=== PATIENT | female | born 1945 | race Caucasian/White ===

== ENCOUNTER 2018-06-02 10:41 | Inpatient (IN) ==
[2018-06-02] MEDS ORDERED: HYDROmorphone 2 MG/1 ML VIAL IV STA (11:27)
[2018-06-02] MEDS ORDERED: ONDANSETRON 4 MG/2 ML VIAL IV STA (11:27)
[2018-06-02] MEDS ORDERED: MAGNESIUM HYDROXIDE SUSP 30 ML UDCUP PO PRN ×2 (12:16→12:47)
[2018-06-02] MEDS ORDERED: ALUMINUM/MAGNES/SIMETH MAX STR 30 ML UDCUP PO PRN (12:16)
[2018-06-02] MEDS ORDERED: ceFAZolin 2,000 MG in PREMIX 1 EACH IV ONE (12:16)
[2018-06-02] MEDS ORDERED: ACETAMINOPHEN 325 MG TABLET PO PRN (12:16)
[2018-06-02] MEDS ORDERED: MORPHINE 4 MG/1 ML VIAL IV PRN ×2 (12:16)
[2018-06-02] MEDS ORDERED: oxyCODONE/ACETAMINOPHEN 5-325 MG TABLET PO PRN ×2 (12:16)
[2018-06-02] MEDS ORDERED: ONDANSETRON 4 MG/2 ML VIAL IV PRN ×2 (12:16→12:47)
[2018-06-02 12:22] LABS: Basophils % 0.5 % (0.0-0.8); Eosinophils # 0.1 10*3/uL (0.0-0.87); Eosinophils % 1.9 % (0.00-10.9); Hematocrit 35.6 VOL% (35.7-47.0); Hemoglobin 11.8 GM/DL (12.0-16.0); Immature Granulocytes % 0.4 %; Immature Granulocytes Absolute 0.03 #; Lymphocytes # 1.3 10*3/uL (1.4-4.0); Lymphocytes % 18.2 % (21.3-54.2); Mean Corpuscular HGB Conc 33.1 GM/DL (32-36); Mean Corpuscular Hemoglobin 31 PG (27-34); Mean Platelet Volume 9.7 FL (9.6-12.0); Monocytes # 0.4 10*3/uL (0.11-0.8); Monocytes % 5.4 % (1.7-12.7); Neutrophils # 5.4 10*3/uL (1.4-7.4); Neutrophils % 73.6 % (38.7-73.9); Platelet Count 229 T/CUMM (130-400); Red Blood Count 3.83 MC/CUMM (3.8-5.5); Red Cell Distribution Width 12.2 % (9.3-17.3); White Blood Count 7.4 T/CUMM (4-12)
[2018-06-02 12:35] LABS: PT Patient Result 10.8 SECS; Partial Thromboplastin Time 24.7 SECS (0-40)
[2018-06-02 12:45] LABS: Albumin 3.4 G/DL (3.4-5.0); Bilirubin,Total 0.5 MG/DL (0.2-1.0); Osmolality,Calculated 282.4 MOS/KG (273-304); Potassium 4.2 MMOL/L (3.5-5.1); Total Protein 6.7 G/DL (6.4-8.3)
[2018-06-02] MEDS ORDERED: HydrOXYzine PAMOATE 25 MG CAPSULE PO PRN (12:47)
[2018-06-02] MEDS ORDERED: HYDROmorphone 2 MG/1 ML VIAL IV PRN (12:47)
[2018-06-02] MEDS ORDERED: CYCLOBENZAPRINE 10 MG TABLET PO PRN (12:47)
[2018-06-02] MEDS: LACTATED RINGERS 1,000 ML IV SCH (12:55)
[2018-06-02] MEDS ORDERED: BUPIVACAINE SPINAL 0.75% 2 ML AMP SPINAL ONE (15:08)
[2018-06-02] MEDS ORDERED: hydrALAZINE 20 MG/1 ML VIAL IV PRN (16:25)
[2018-06-02] MEDS ORDERED: BACITRACIN OINT 0.9 GM PACK TOP ONE (16:33)
[2018-06-02] MEDS ORDERED: ROPIVACAINE 0.5% 30 ML VIAL ONE (17:06)
[2018-06-02] MEDS ORDERED: ONDANSETRON 4 MG/2 ML VIAL ONE (17:35)
[2018-06-02] MEDS ORDERED: fentaNYL 100 MCG/2 ML VIAL ONE ×2 (17:49)
[2018-06-02] MEDS ORDERED: DESFLURANE 1 UNIT/15 MINUTE INH ONE (17:49)
[2018-06-02] MEDS ORDERED: MIDAZOLAM 2 MG/2 ML VIAL ONE (17:49)
[2018-06-02] MEDS ORDERED: ETOMIDATE 40 MG/20 ML VIAL IV ONE (17:50)
[2018-06-02] MEDS ORDERED: GLYCOPYRROLATE 0.4 MG/2 ML VIAL ONE (17:50)
[2018-06-02] MEDS ORDERED: NEOSTIGMINE 10 MG/10 ML VIAL ONE (17:50)
[2018-06-02] MEDS ORDERED: ACETAMINOPHEN 1,000 MG/100 ML VIAL IV ONE (17:50)
[2018-06-02] MEDS ORDERED: hydrALAZINE 20 MG/1 ML VIAL ONE (17:50)
[2018-06-02] MEDS ORDERED: ROCURONIUM 100 MG/10 ML VIAL IV ONE (17:50)
[2018-06-02] MEDS: KETOROLAC 30 MG/1 ML VIAL IV SCH ×2 (18:29→21:16)
[2018-06-02] MEDS: ceFAZolin 2,000 MG in PREMIX 1 EACH IV SCH (21:15)
[2018-06-02] MEDS: DOCUSATE SODIUM 100 MG CAPSULE PO SCH (21:15)
[2018-06-02] MEDS: LOVASTATIN 20 MG TABLET PO SCH (21:15)
[2018-06-03 01:32] LABS: Apearance,Urine CLEAR (Clear); Bilirubin,Urine Negative (Negative); Blood, Urine Negative (Negative); Glucose,Urine (UA) Negative (Negative); Ketones,Urine Negative (Negative); Nitrite,Urine Negative (Negative); Protein,Urine Negative; RBC,Urine 1 /HPF (0-4); Urine Color Yellow (Yellow); Urine Specific Gravity 1.013 (1.001-1.035); Urine Urobilinogen < 2.0 EU/DL (0.2-1.0); WBC,Urine <1 /HPF (0-6)
[2018-06-03] MEDS: LACTATED RINGERS 1,000 ML IV SCH ×2 (02:40→06:46)
[2018-06-03] MEDS: ceFAZolin 2,000 MG in PREMIX 1 EACH IV SCH (04:20)
[2018-06-03] MEDS: KETOROLAC 30 MG/1 ML VIAL IV SCH ×2 (04:21→09:46)
[2018-06-03 06:04] LABS: Basophils % 0.3 % (0.0-0.8); Eosinophils # 0.1 10*3/uL (0.0-0.87); Eosinophils % 1.4 % (0.00-10.9); Hematocrit 26.9 VOL% (35.7-47.0); Immature Granulocytes % 0.4 %; Immature Granulocytes Absolute 0.03 #; Lymphocytes # 1.5 10*3/uL (1.4-4.0); Lymphocytes % 21.4 % (21.3-54.2); Mean Corpuscular HGB Conc 33.5 GM/DL (32-36); Mean Corpuscular Hemoglobin 31 PG (27-34); Mean Corpuscular Volume 92.4 FL (87-102); Mean Platelet Volume 9.9 FL (9.6-12.0); Monocytes # 0.4 10*3/uL (0.11-0.8); Monocytes % 6.2 % (1.7-12.7); Neutrophils % 70.3 % (38.7-73.9); Platelet Count 170 T/CUMM (130-400); Red Blood Count 2.91 MC/CUMM (3.8-5.5); Red Cell Distribution Width 12.4 % (9.3-17.3); White Blood Count 7.1 T/CUMM (4-12)
[2018-06-03 06:24] LABS: Calcium 8.2 MG/DL (8.5-10.1); Osmolality,Calculated 283.3 MOS/KG (273-304); Potassium 3.8 MMOL/L (3.5-5.1)
[2018-06-03] MEDS: FONDAPARINUX 2.5 MG/0.5 ML SYRINGE SUBCUT SCH (09:45)
[2018-06-03] MEDS: LISINOPRIL 20 MG TABLET PO SCH (09:45)
[2018-06-03] MEDS: hydroCHLOROthiazide 25 MG TABLET PO SCH (09:45)
[2018-06-03] MEDS: CHOLECALCIFEROL 400 UNIT TABLET PO SCH (09:46)
[2018-06-03] MEDS: MULTIVITAMIN (CENTRUM) TABLET PO SCH (09:46)
[2018-06-03] MEDS: DOCUSATE SODIUM 100 MG CAPSULE PO SCH ×2 (09:46→21:10)
[2018-06-03] MEDS: ASCORBIC ACID 500 MG TABLET PO SCH (09:46)
[2018-06-03] MEDS: OMEGA 3 ACID ETHYL ESTERS 1 GM CAPSULE PO SCH (09:48)
[2018-06-03] MEDS: CELECOXIB 200 MG CAPSULE PO SCH (21:09)
[2018-06-03] MEDS: LOVASTATIN 20 MG TABLET PO SCH (21:10)
[2018-06-04 06:09] LABS: Basophils % 0.3 % (0.0-0.8); Eosinophils # 0.3 10*3/uL (0.0-0.87); Hematocrit 27.8 VOL% (35.7-47.0); Immature Granulocytes % 0.6 %; Immature Granulocytes Absolute 0.04 #; Lymphocytes # 1.7 10*3/uL (1.4-4.0); Mean Corpuscular HGB Conc 32.4 GM/DL (32-36); Mean Corpuscular Hemoglobin 30 PG (27-34); Mean Corpuscular Volume 93.3 FL (87-102); Mean Platelet Volume 10.2 FL (9.6-12.0); Monocytes # 0.5 10*3/uL (0.11-0.8); Monocytes % 8.7 % (1.7-12.7); Neutrophils # 3.6 10*3/uL (1.4-7.4); Neutrophils % 58.4 % (38.7-73.9); Platelet Count 159 T/CUMM (130-400); Red Blood Count 2.98 MC/CUMM (3.8-5.5); Red Cell Distribution Width 12.4 % (9.3-17.3); White Blood Count 6.2 T/CUMM (4-12)
[2018-06-04] MEDS: CELECOXIB 200 MG CAPSULE PO SCH (09:58)
[2018-06-04] MEDS: DOCUSATE SODIUM 100 MG CAPSULE PO SCH ×2 (09:58→20:48)
[2018-06-04] MEDS: MULTIVITAMIN (CENTRUM) TABLET PO SCH (09:58)
[2018-06-04] MEDS: OMEGA 3 ACID ETHYL ESTERS 1 GM CAPSULE PO SCH (09:58)
[2018-06-04] MEDS: LISINOPRIL 20 MG TABLET PO SCH (09:59)
[2018-06-04] MEDS: hydroCHLOROthiazide 25 MG TABLET PO SCH (09:59)
[2018-06-04] MEDS: CHOLECALCIFEROL 400 UNIT TABLET PO SCH (09:59)
[2018-06-04] MEDS: ASCORBIC ACID 500 MG TABLET PO SCH (09:59)
[2018-06-04] MEDS: FONDAPARINUX 2.5 MG/0.5 ML SYRINGE SUBCUT SCH (10:06)
[2018-06-04] MEDS: LOVASTATIN 20 MG TABLET PO SCH (20:48)
[2018-06-05 06:36] LABS: Basophils % 0.6 % (0.0-0.8); Eosinophils # 0.4 10*3/uL (0.0-0.87); Eosinophils % 5.3 % (0.00-10.9); Hematocrit 26.1 VOL% (35.7-47.0); Hemoglobin 8.8 GM/DL (12.0-16.0); Immature Granulocytes % 0.3 %; Immature Granulocytes Absolute 0.02 #; Lymphocytes # 2.6 10*3/uL (1.4-4.0); Lymphocytes % 37.3 % (21.3-54.2); Mean Corpuscular HGB Conc 33.7 GM/DL (32-36); Mean Corpuscular Hemoglobin 31 PG (27-34); Mean Corpuscular Volume 91.9 FL (87-102); Mean Platelet Volume 10.1 FL (9.6-12.0); Monocytes # 0.4 10*3/uL (0.11-0.8); Monocytes % 6.3 % (1.7-12.7); NRBC # 0.03 10*3/uL; Neutrophils # 3.5 10*3/uL (1.4-7.4); Neutrophils % 50.2 % (38.7-73.9); Platelet Count 160 T/CUMM (130-400); Red Blood Count 2.84 MC/CUMM (3.8-5.5); Red Cell Distribution Width 12.6 % (9.3-17.3)
[2018-06-05] MEDS: CHOLECALCIFEROL 400 UNIT TABLET PO SCH (09:22)
[2018-06-05] MEDS: LISINOPRIL 20 MG TABLET PO SCH (09:22)
[2018-06-05] MEDS: hydroCHLOROthiazide 25 MG TABLET PO SCH (09:23)
[2018-06-05] MEDS: DOCUSATE SODIUM 100 MG CAPSULE PO SCH (09:23)
[2018-06-05] MEDS: MULTIVITAMIN (CENTRUM) TABLET PO SCH (09:23)
[2018-06-05] MEDS: OMEGA 3 ACID ETHYL ESTERS 1 GM CAPSULE PO SCH (09:23)
[2018-06-05] MEDS: ASCORBIC ACID 500 MG TABLET PO SCH (09:23)
[2018-06-05] MEDS: FONDAPARINUX 2.5 MG/0.5 ML SYRINGE SUBCUT SCH (09:24)
[2018-06-05] MEDS: CELECOXIB 200 MG CAPSULE PO SCH (09:26)
[2018-06-05 13:26] VITALS: BP 142/75
== END 2018-06-05 15:40 | disposition home health service (06) | DRG 481 ==
LOC: EDUNIT# → N.ED 10:41 → N.EDINP 11:05 → N.3E 12:27
PROVIDERS: ADMIT Orthopaedic Surgery; ATTEND Orthopaedic Surgery

== ENCOUNTER 2020-09-09 05:34 | Inpatient (IN) ==
[2020-09-04 11:13] LABS: Basophils # 0.1 10*3/uL (0.0-0.2); Basophils % 0.8 % (0.0-0.8); Eosinophils # 0.2 10*3/uL (0.0-0.87); Eosinophils % 3.3 % (0.00-10.9); Hematocrit 35.7 VOL% (35.7-47.0); Hemoglobin 11.9 GM/DL (12.0-16.0); Immature Granulocytes % 0.3 %; Immature Granulocytes Absolute 0.02 #; Lymphocytes # 2.6 10*3/uL (1.4-4.0); Lymphocytes % 39.6 % (21.3-54.2); Mean Corpuscular HGB Conc 33.3 GM/DL (32-36); Mean Corpuscular Volume 94.4 FL (87-102); Mean Platelet Volume 10.1 FL (9.6-12.0); Monocytes % 8.2 % (1.7-12.7); Neutrophils % 47.8 % (38.7-73.9); Platelet Count 221 T/CUMM (130-400); Red Blood Count 3.78 MC/CUMM (3.8-5.5); Red Cell Distribution Width 12.1 % (9.3-17.3); White Blood Count 6.6 T/CUMM (4-12)
[2020-09-04 11:31] LABS: Calcium 9.4 MG/DL (8.5-10.1)
[2020-09-09] MEDS ORDERED: ceFAZolin 2,000 MG in PREMIX 1 EACH IV ONE (06:00)
[2020-09-09] MEDS ORDERED: DIAZEPAM 5 MG TABLET PO ONE (07:43)
[2020-09-09] MEDS ORDERED: PANTOPRAZOLE 40 MG TABLET PO ONE (07:43)
[2020-09-09] MEDS ORDERED: ACETAMINOPHEN 500 MG TABLET PO ONE (07:43)
[2020-09-09] MEDS ORDERED: LACTATED RINGERS 1,000 ML IV SCH (08:00)
[2020-09-09] MEDS ORDERED: ROPIVACAINE 0.5% 30 ML VIAL ONE (10:18)
[2020-09-09] MEDS ORDERED: BUPIVACAINE 0.5% 50 ML VIAL ONE (10:39)
[2020-09-09] MEDS ORDERED: BACITRACIN OINT 0.9 GM PACK TOP ONE (10:39)
[2020-09-09] MEDS ORDERED: LIDOCAINE 2%/EPI 20 ML VIAL ONE (10:40)
[2020-09-09] MEDS ORDERED: CYCLOBENZAPRINE 10 MG TABLET PO PRN (12:34)
[2020-09-09] MEDS ORDERED: MAGNESIUM HYDROXIDE SUSP 30 ML UDCUP PO PRN (12:35)
[2020-09-09] MEDS: LACTATED RINGERS 1,000 ML IV SCH ×2 (12:37→22:54)
[2020-09-09] MEDS ORDERED: PROMETHAZINE INJ 25 MG in SODIUM CHLORIDE 0.9% 50 ML IV PRN (12:44)
[2020-09-09] MEDS ORDERED: HYDROmorphone 2 MG/1 ML VIAL IV PRN (12:44)
[2020-09-09] MEDS ORDERED: diphenhydrAMINE 50 MG/1 ML VIAL IV PRN (12:44)
[2020-09-09] MEDS ORDERED: ONDANSETRON 4 MG/2 ML VIAL IV PRN (12:44)
[2020-09-09] MEDS ORDERED: propofoL 200 MG/20 ML VIAL IV ONE (12:48)
[2020-09-09] MEDS ORDERED: ROCURONIUM 100 MG/10 ML VIAL IV ONE (12:49)
[2020-09-09] MEDS ORDERED: NEOSTIGMINE 10 MG/10 ML VIAL ONE (12:49)
[2020-09-09] MEDS ORDERED: SEVOFLURANE 1 UNIT/15 MINUTE INH ONE (12:49)
[2020-09-09] MEDS ORDERED: MIDAZOLAM 2 MG/2 ML VIAL ONE (12:49)
[2020-09-09] MEDS ORDERED: fentaNYL 100 MCG/2 ML VIAL ONE (12:49)
[2020-09-09] MEDS ORDERED: LIDOCAINE 2% 5 ML VIAL ONE (12:49)
[2020-09-09] MEDS ORDERED: LABETALOL 100 MG/20 ML VIAL IV ONE (12:49)
[2020-09-09] MEDS ORDERED: GLYCOPYRROLATE 0.4 MG/2 ML VIAL ONE (12:49)
[2020-09-09] MEDS: MEPERIDINE 25 MG/1 ML VIAL IV PRN ×2 (12:50→13:30)
[2020-09-09] MEDS ORDERED: PROMETHAZINE 25 MG/1 ML VIAL ONE (13:00)
[2020-09-09] MEDS ORDERED: KETOROLAC 30 MG/1 ML VIAL ONE (13:00)
[2020-09-09] MEDS: KETOROLAC 15 MG/1 ML VIAL IV SCH ×2 (13:38→18:06)
[2020-09-09] MEDS: HYDROmorphone 2 MG/1 ML VIAL IV PRN (14:19)
[2020-09-09] MEDS: ceFAZolin 2,000 MG in PREMIX 1 EACH IV SCH (16:17)
[2020-09-09] MEDS: CHOLECALCIFEROL 5,000 UNIT TABLET PO SCH (22:13)
[2020-09-09] MEDS: SIMVASTATIN 10 MG TABLET PO SCH (22:14)
[2020-09-09] MEDS: DOCUSATE SODIUM 100 MG CAPSULE PO SCH (22:14)
[2020-09-10] MEDS: KETOROLAC 15 MG/1 ML VIAL IV SCH ×2 (02:30→06:20)
[2020-09-10] MEDS: ceFAZolin 2,000 MG in PREMIX 1 EACH IV SCH ×4 (02:30→23:45)
[2020-09-10 06:12] LABS: Basophils % 0.3 % (0.0-0.8); Eosinophils % 0.1 % (0.00-10.9); Hematocrit 28.4 VOL% (35.7-47.0); Hemoglobin 9.6 GM/DL (12.0-16.0); Immature Granulocytes % 0.5 %; Immature Granulocytes Absolute 0.05 #; Lymphocytes # 1.8 10*3/uL (1.4-4.0); Lymphocytes % 19.3 % (21.3-54.2); Mean Corpuscular HGB Conc 33.8 GM/DL (32-36); Mean Corpuscular Volume 92.8 FL (87-102); Mean Platelet Volume 9.9 FL (9.6-12.0); Monocytes % 7.5 % (1.7-12.7); Neutrophils % 72.3 % (38.7-73.9); Platelet Count 167 T/CUMM (130-400); Red Blood Count 3.06 MC/CUMM (3.8-5.5); Red Cell Distribution Width 12.1 % (9.3-17.3); White Blood Count 9.1 T/CUMM (4-12)
[2020-09-10 06:35] LABS: Calcium 8.7 MG/DL (8.5-10.1); Osmolality,Calculated 283.3 MOS/KG (273-304)
[2020-09-10] MEDS: LACTATED RINGERS 1,000 ML IV SCH (07:34)
[2020-09-10] MEDS: CHOLECALCIFEROL 5,000 UNIT TABLET PO SCH ×2 (08:06→21:25)
[2020-09-10] MEDS: OMEGA 3 ACID ETHYL ESTERS 1 GM CAPSULE PO SCH (08:06)
[2020-09-10] MEDS: DOCUSATE SODIUM 100 MG CAPSULE PO SCH ×2 (08:07→21:25)
[2020-09-10] MEDS: PANTOPRAZOLE 40 MG TABLET PO SCH (08:07)
[2020-09-10] MEDS: MULTIVITAMIN (BEROCCA) TABLET PO SCH (08:07)
[2020-09-10] MEDS: hydroCHLOROthiazide 12.5 MG CAPSULE PO SCH (08:07)
[2020-09-10] MEDS: POTASSIUM GLUCONATE 500 MG TABLET PO SCH (08:07)
[2020-09-10] MEDS: lisinopriL 20 MG TABLET PO SCH (08:07)
[2020-09-10] MEDS: VITAMIN E 400 UNIT CAPSULE PO SCH (08:07)
[2020-09-10] MEDS: CETIRIZINE 10 MG TABLET PO SCH (08:07)
[2020-09-10] MEDS: MAGNESIUM OXIDE 400 MG TABLET PO SCH (08:07)
[2020-09-10] MEDS: FERROUS SULFATE 325 MG TABLET PO SCH (08:07)
[2020-09-10] MEDS ORDERED: SENNOSIDES 25 MG PO SCH (09:00)
[2020-09-10] MEDS ORDERED: FONDAPARINUX 2.5 MG/0.5 ML SYRINGE SUBCUT SCH (09:00)
[2020-09-10] MEDS: ASCORBIC ACID 500 MG TABLET PO SCH (16:34)
[2020-09-10] MEDS: HYDROmorphone 2 MG/1 ML VIAL IV PRN ×2 (18:18→23:44)
[2020-09-10] MEDS: SIMVASTATIN 10 MG TABLET PO SCH (21:25)
[2020-09-10] MEDS: ONDANSETRON 4 MG/2 ML VIAL IV PRN (23:56)
[2020-09-11] MEDS ORDERED: VANCOMYCIN INJ 1,000 MG in SODIUM CHLORIDE 0.9% 250 ML IV ONE ×2 (06:00→18:00)
[2020-09-11 06:09] LABS: Basophils # 0.1 10*3/uL (0.0-0.2); Basophils % 0.6 % (0.0-0.8); Eosinophils # 0.3 10*3/uL (0.0-0.87); Eosinophils % 3.2 % (0.00-10.9); Hemoglobin 9.2 GM/DL (12.0-16.0); Immature Granulocytes % 0.3 %; Immature Granulocytes Absolute 0.02 #; Lymphocytes % 37.8 % (21.3-54.2); Mean Corpuscular HGB Conc 32.9 GM/DL (32-36); Mean Corpuscular Volume 95.9 FL (87-102); Mean Platelet Volume 10.1 FL (9.6-12.0); Monocytes % 8.8 % (1.7-12.7); Neutrophils % 49.3 % (38.7-73.9); Platelet Count 157 T/CUMM (130-400); Red Blood Count 2.92 MC/CUMM (3.8-5.5); Red Cell Distribution Width 12.3 % (9.3-17.3); White Blood Count 7.9 T/CUMM (4-12)
[2020-09-11] MEDS ORDERED: DEXAMETHASONE 4 MG/1 ML VIAL ONE ×2 (06:42→07:58)
[2020-09-11] MEDS ORDERED: ROPIVACAINE 0.5% 30 ML VIAL ONE (06:42)
[2020-09-11 06:44] LABS: Calcium 8.8 MG/DL (8.5-10.1); Osmolality,Calculated 284.1 MOS/KG (273-304)
[2020-09-11] MEDS ORDERED: propofoL 200 MG/20 ML VIAL IV ONE (06:44)
[2020-09-11] MEDS ORDERED: ROCURONIUM 50 MG/5 ML VIAL IV ONE (06:44)
[2020-09-11] MEDS ORDERED: LIDOCAINE 2% 5 ML VIAL ONE (06:45)
[2020-09-11] MEDS ORDERED: SUCCINYLCHOLINE 200 MG/10 ML VIAL ONE (06:46)
[2020-09-11] MEDS ORDERED: fentaNYL 100 MCG/2 ML VIAL ONE ×2 (06:47→08:56)
[2020-09-11] MEDS ORDERED: MIDAZOLAM 2 MG/2 ML VIAL ONE (06:47)
[2020-09-11] MEDS ORDERED: ePHEDrine 50 MG/ML VIAL ONE (07:40)
[2020-09-11] MEDS ORDERED: KETAMINE 500 MG/10 ML VIAL ONE (07:52)
[2020-09-11] MEDS ORDERED: ACETAMINOPHEN 1,000 MG/100 ML VIAL IV ONE (07:54)
[2020-09-11] MEDS ORDERED: ONDANSETRON 4 MG/2 ML VIAL ONE (07:58)
[2020-09-11] MEDS ORDERED: SEVOFLURANE 1 UNIT/15 MINUTE INH ONE ×4 (08:10→09:09)
[2020-09-11] MEDS ORDERED: BACITRACIN OINT 0.9 GM PACK TOP ONE (08:49)
[2020-09-11] MEDS ORDERED: NEOSTIGMINE 10 MG/10 ML VIAL ONE (08:51)
[2020-09-11] MEDS ORDERED: GLYCOPYRROLATE 0.4 MG/2 ML VIAL ONE (08:51)
[2020-09-11] MEDS ORDERED: TRANEXAMIC ACID 1,000 MG/10 ML VIAL ONE (08:58)
[2020-09-11] MEDS ORDERED: LACTATED RINGERS 1,000 ML IV ONE (09:00)
[2020-09-11] MEDS ORDERED: diphenhydrAMINE 50 MG/1 ML VIAL IV PRN (09:30)
[2020-09-11] MEDS ORDERED: ONDANSETRON 4 MG/2 ML VIAL IV PRN (09:30)
[2020-09-11] MEDS ORDERED: HYDROmorphone 2 MG/1 ML VIAL IV PRN (09:30)
[2020-09-11] MEDS ORDERED: PROMETHAZINE INJ 25 MG in SODIUM CHLORIDE 0.9% 50 ML IV PRN (09:30)
[2020-09-11] MEDS: MEPERIDINE 25 MG/1 ML VIAL IV PRN ×2 (10:05→10:30)
[2020-09-11] MEDS: LACTATED RINGERS 1,000 ML IV SCH ×4 (10:16→23:44)
[2020-09-11] MEDS: lisinopriL 20 MG TABLET PO SCH (11:14)
[2020-09-11] MEDS: hydroCHLOROthiazide 12.5 MG CAPSULE PO SCH (11:14)
[2020-09-11] MEDS: KETOROLAC 15 MG/1 ML VIAL IV SCH ×3 (11:19→22:35)
[2020-09-11] MEDS: DOCUSATE SODIUM 100 MG CAPSULE PO SCH ×2 (13:02→22:35)
[2020-09-11] MEDS: FERROUS SULFATE 325 MG TABLET PO SCH (13:02)
[2020-09-11] MEDS: VITAMIN E 400 UNIT CAPSULE PO SCH (13:02)
[2020-09-11] MEDS: ASCORBIC ACID 500 MG TABLET PO SCH (13:02)
[2020-09-11] MEDS: POTASSIUM GLUCONATE 500 MG TABLET PO SCH (13:02)
[2020-09-11] MEDS: MAGNESIUM OXIDE 400 MG TABLET PO SCH (13:02)
[2020-09-11] MEDS: MULTIVITAMIN (BEROCCA) TABLET PO SCH (13:03)
[2020-09-11] MEDS: ceFAZolin 2,000 MG in PREMIX 1 EACH IV SCH ×3 (13:03→23:44)
[2020-09-11] MEDS: OMEGA 3 ACID ETHYL ESTERS 1 GM CAPSULE PO SCH (13:03)
[2020-09-11] MEDS: CETIRIZINE 10 MG TABLET PO SCH (13:03)
[2020-09-11] MEDS: PANTOPRAZOLE 40 MG TABLET PO SCH (13:03)
[2020-09-11] MEDS: CHOLECALCIFEROL 5,000 UNIT TABLET PO SCH ×2 (13:10→22:34)
[2020-09-11] MEDS: HYDROmorphone 2 MG/1 ML VIAL IV PRN ×2 (13:37→18:31)
[2020-09-11] MEDS: ONDANSETRON 4 MG/2 ML VIAL IV PRN ×2 (13:44→18:41)
[2020-09-11] MEDS: SIMVASTATIN 10 MG TABLET PO SCH (22:35)
[2020-09-12] MEDS: KETOROLAC 15 MG/1 ML VIAL IV SCH (03:28)
[2020-09-12] MEDS: FONDAPARINUX 2.5 MG/0.5 ML SYRINGE SUBCUT SCH (05:23)
[2020-09-12] MEDS: HYDROmorphone 2 MG/1 ML VIAL IV PRN ×7 (05:23→23:36)
[2020-09-12] MEDS: ONDANSETRON 4 MG/2 ML VIAL IV PRN ×3 (05:28→23:36)
[2020-09-12 06:33] LABS: Basophils % 0.4 % (0.0-0.8); Eosinophils # 0.1 10*3/uL (0.0-0.87); Eosinophils % 1.1 % (0.00-10.9); Hemoglobin 7.2 GM/DL (12.0-16.0); Immature Granulocytes % 0.4 %; Immature Granulocytes Absolute 0.04 #; Lymphocytes # 2.6 10*3/uL (1.4-4.0); Lymphocytes % 27.6 % (21.3-54.2); Mean Corpuscular HGB Conc 32.7 GM/DL (32-36); Mean Corpuscular Volume 96.1 FL (87-102); Mean Platelet Volume 10.3 FL (9.6-12.0); Monocytes % 10.4 % (1.7-12.7); Neutrophils % 60.1 % (38.7-73.9); Platelet Count 126 T/CUMM (130-400); Red Blood Count 2.29 MC/CUMM (3.8-5.5); Red Cell Distribution Width 12.4 % (9.3-17.3); White Blood Count 9.4 T/CUMM (4-12)
[2020-09-12] MEDS ORDERED: FUROSEMIDE 40 MG/4 ML VIAL IV PRN (06:38)
[2020-09-12] MEDS ORDERED: SODIUM CHLORIDE 0.9% 1,000 ML IV PRN ×3 (06:38→12:00)
[2020-09-12 06:49] LABS: Calcium 8.1 MG/DL (8.5-10.1); Osmolality,Calculated 276.7 MOS/KG (273-304)
[2020-09-12 06:51] LABS: Osmolality,Calculated 280.4 MOS/KG (273-304)
[2020-09-12 06:59] LABS: Hypochromasia 2+; Microcytosis 1+
[2020-09-12] MEDS: lisinopriL 20 MG TABLET PO SCH (09:33)
[2020-09-12] MEDS: CHOLECALCIFEROL 5,000 UNIT TABLET PO SCH ×2 (09:33→20:26)
[2020-09-12] MEDS: POTASSIUM GLUCONATE 500 MG TABLET PO SCH (09:33)
[2020-09-12] MEDS: OMEGA 3 ACID ETHYL ESTERS 1 GM CAPSULE PO SCH (09:33)
[2020-09-12] MEDS: DOCUSATE SODIUM 100 MG CAPSULE PO SCH ×2 (09:33→20:26)
[2020-09-12] MEDS: hydroCHLOROthiazide 12.5 MG CAPSULE PO SCH (09:34)
[2020-09-12] MEDS: MULTIVITAMIN (BEROCCA) TABLET PO SCH (09:34)
[2020-09-12] MEDS: FERROUS SULFATE 325 MG TABLET PO SCH (09:34)
[2020-09-12] MEDS: VITAMIN E 400 UNIT CAPSULE PO SCH (09:34)
[2020-09-12] MEDS: MAGNESIUM OXIDE 400 MG TABLET PO SCH (09:34)
[2020-09-12] MEDS: ASCORBIC ACID 500 MG TABLET PO SCH (09:34)
[2020-09-12] MEDS: PANTOPRAZOLE 40 MG TABLET PO SCH (09:34)
[2020-09-12] MEDS: CETIRIZINE 10 MG TABLET PO SCH (09:34)
[2020-09-12] MEDS: ceFAZolin 2,000 MG in PREMIX 1 EACH IV SCH ×3 (09:49→23:37)
[2020-09-12] MEDS: SIMVASTATIN 10 MG TABLET PO SCH (20:26)
[2020-09-12 22:38] LABS: Hematocrit 30.6 VOL% (35.7-47.0)
[2020-09-12 22:42] LABS: Hemoglobin 10.5 GM/DL (12.0-16.0)
[2020-09-13] MEDS: HYDROmorphone 2 MG/1 ML VIAL IV PRN ×3 (03:04→10:58)
[2020-09-13] MEDS: ONDANSETRON 4 MG/2 ML VIAL IV PRN (03:04)
[2020-09-13 05:31] LABS: Basophils % 0.4 % (0.0-0.8); Eosinophils # 0.2 10*3/uL (0.0-0.87); Eosinophils % 1.6 % (0.00-10.9); Hemoglobin 9.8 GM/DL (12.0-16.0); Immature Granulocytes % 0.5 %; Immature Granulocytes Absolute 0.05 #; Lymphocytes # 1.8 10*3/uL (1.4-4.0); Lymphocytes % 19.4 % (21.3-54.2); Mean Corpuscular HGB Conc 33.8 GM/DL (32-36); Mean Corpuscular Volume 90.6 FL (87-102); Mean Platelet Volume 10.3 FL (9.6-12.0); Monocytes % 10.1 % (1.7-12.7); Platelet Count 129 T/CUMM (130-400); Red Cell Distribution Width 14.4 % (9.3-17.3); White Blood Count 9.5 T/CUMM (4-12)
[2020-09-13] MEDS: FONDAPARINUX 2.5 MG/0.5 ML SYRINGE SUBCUT SCH (05:31)
[2020-09-13] MEDS: MULTIVITAMIN (BEROCCA) TABLET PO SCH (10:50)
[2020-09-13] MEDS: DOCUSATE SODIUM 100 MG CAPSULE PO SCH (10:50)
[2020-09-13] MEDS: CETIRIZINE 10 MG TABLET PO SCH (10:50)
[2020-09-13] MEDS: POTASSIUM GLUCONATE 500 MG TABLET PO SCH (10:50)
[2020-09-13] MEDS: lisinopriL 20 MG TABLET PO SCH (10:50)
[2020-09-13] MEDS: VITAMIN E 400 UNIT CAPSULE PO SCH (10:50)
[2020-09-13] MEDS: OMEGA 3 ACID ETHYL ESTERS 1 GM CAPSULE PO SCH (10:50)
[2020-09-13] MEDS: hydroCHLOROthiazide 12.5 MG CAPSULE PO SCH (10:50)
[2020-09-13] MEDS: ASCORBIC ACID 500 MG TABLET PO SCH (10:51)
[2020-09-13] MEDS: FERROUS SULFATE 325 MG TABLET PO SCH (10:51)
[2020-09-13] MEDS: MAGNESIUM OXIDE 400 MG TABLET PO SCH (10:51)
[2020-09-13] MEDS: CHOLECALCIFEROL 5,000 UNIT TABLET PO SCH (10:51)
[2020-09-13] MEDS: PANTOPRAZOLE 40 MG TABLET PO SCH (10:51)
[2020-09-13] MEDS: ceFAZolin 2,000 MG in PREMIX 1 EACH IV SCH (10:58)
[2020-09-13 11:20] VITALS: BP 173/62
== END 2020-09-13 15:42 | disposition home health service (06) | DRG 467 ==
LOC: N.OR 05:34 → N.SDSINP 05:36 → N.3E 15:28
PROVIDERS: ADMIT Orthopaedic Surgery; ATTEND Orthopaedic Surgery

== ENCOUNTER 2021-03-27 14:54 | Inpatient (IN) ==
[2021-03-27] MEDS ORDERED: ONDANSETRON 4 MG/2 ML VIAL ONE ×2 (15:14→17:48)
[2021-03-27] MEDS ORDERED: HYDROmorphone 2 MG/1 ML VIAL IV STA (15:14)
[2021-03-27] MEDS ORDERED: ONDANSETRON 4 MG/2 ML VIAL IV STA (15:14)
[2021-03-27] MEDS ORDERED: SODIUM CHLORIDE 0.9% 1,000 ML IV STA (15:14)
[2021-03-27] MEDS ORDERED: HYDROmorphone 2 MG/1 ML VIAL ONE (15:15)
[2021-03-27 15:30] LABS: Basophils % 0.2 % (0.0-0.8); Eosinophils # 0.1 10*3/uL (0.0-0.87); Eosinophils % 0.6 % (0.00-10.9); Hematocrit 40.3 VOL% (35.7-47.0); Hemoglobin 12.8 GM/DL (12.0-16.0); Immature Granulocytes % 0.3 %; Immature Granulocytes Absolute 0.04 #; Lymphocytes # 1.5 10*3/uL (1.4-4.0); Lymphocytes % 12.7 % (21.3-54.2); Mean Corpuscular HGB Conc 31.8 GM/DL (32-36); Mean Platelet Volume 9.7 FL (9.6-12.0); Neutrophils % 81.2 % (38.7-73.9); Platelet Count 251 T/CUMM (130-400); Red Cell Distribution Width 12.5 % (9.3-17.3); White Blood Count 12.1 T/CUMM (4-12)
[2021-03-27 15:49] LABS: Calcium 9.9 MG/DL (8.5-10.1); Osmolality,Calculated 289.3 MOS/KG (273-304); Potassium 3.7 MMOL/L (3.5-5.1); Total Protein 7.6 G/DL (6.4-8.2)
[2021-03-27 16:08] LABS: Bilirubin,Urine Negative (Negative); Blood, Urine Negative (Negative); Glucose,Urine (UA) Negative (Negative); Ketones,Urine 5 mg/dL (Negative); Mucus,Urine Occasional /LPF (Occasional); Nitrite,Urine Negative (Negative); Protein,Urine Negative; RBC,Urine 1 /HPF (0-4); Urine Appearance CLEAR (Clear); Urine Color Yellow (Yellow); Urine Specific Gravity 1.013 (1.001-1.035); Urine Urobilinogen < 2.0 EU/DL (0.2-1.0)
[2021-03-27] MEDS ORDERED: LIDOCAINE 1%/EPI INJ 20 ML VIAL ONE (17:45)
[2021-03-27] MEDS ORDERED: DEXAMETHASONE 4 MG/1 ML VIAL ONE (17:48)
[2021-03-27] MEDS ORDERED: propofoL 200 MG/20 ML VIAL IV ONE (17:48)
[2021-03-27] MEDS ORDERED: ROCURONIUM 50 MG/5 ML VIAL IV ONE (17:48)
[2021-03-27] MEDS ORDERED: fentaNYL 100 MCG/2 ML VIAL ONE (17:48)
[2021-03-27] MEDS ORDERED: SUCCINYLCHOLINE 200 MG/10 ML VIAL ONE (17:48)
[2021-03-27] MEDS ORDERED: LIDOCAINE 2% 5 ML VIAL ONE (17:48)
[2021-03-27] MEDS ORDERED: BUPIVACAINE 0.5% 50 ML VIAL ONE (18:00)
[2021-03-27] MEDS ORDERED: ALBUMIN 5% 12.5 GM/250 ML VIAL IV ONE (18:03)
[2021-03-27] MEDS ORDERED: PROMETHAZINE INJ 25 MG in SODIUM CHLORIDE 0.9% 50 ML IV PRN (18:33)
[2021-03-27] MEDS ORDERED: ONDANSETRON 4 MG/2 ML VIAL IV PRN ×2 (18:33→20:07)
[2021-03-27] MEDS ORDERED: HYDROmorphone 2 MG/1 ML VIAL IV PRN (18:33)
[2021-03-27] MEDS ORDERED: diphenhydrAMINE 50 MG/1 ML VIAL IV PRN (18:33)
[2021-03-27] MEDS ORDERED: MEPERIDINE 25 MG/1 ML VIAL IV PRN (18:33)
[2021-03-27] MEDS ORDERED: SEVOFLURANE 1 UNIT/15 MINUTE INH ONE (19:01)
[2021-03-27] MEDS ORDERED: GLYCOPYRROLATE 0.4 MG/2 ML VIAL ONE (19:02)
[2021-03-27] MEDS ORDERED: LABETALOL 20 MG/4 ML SYRINGE IV ONE (19:02)
[2021-03-27] MEDS ORDERED: NEOSTIGMINE 10 MG/10 ML VIAL ONE (19:02)
[2021-03-27] MEDS ORDERED: PROMETHAZINE 25 MG/1 ML VIAL IM PRN (20:07)
[2021-03-27] MEDS: LACTATED RINGERS 1,000 ML IV SCH (20:15)
[2021-03-27] MEDS: KETOROLAC 15 MG/1 ML VIAL IV SCH (20:15)
[2021-03-27] MEDS: HYDROmorphone 2 MG/1 ML VIAL IV PRN (21:20)
[2021-03-27] MEDS ORDERED: hydrALAZINE 20 MG/1 ML VIAL IV PRN (22:26)
[2021-03-28] MEDS: HYDROmorphone 2 MG/1 ML VIAL IV PRN ×2 (00:24→05:16)
[2021-03-28] MEDS: KETOROLAC 15 MG/1 ML VIAL IV SCH ×4 (02:38→20:15)
[2021-03-28 05:03] LABS: Basophils % 0.1 % (0.0-0.8); Hematocrit 37.4 VOL% (35.7-47.0); Immature Granulocytes % 0.4 %; Immature Granulocytes Absolute 0.04 #; Lymphocytes # 0.8 10*3/uL (1.4-4.0); Lymphocytes % 6.6 % (21.3-54.2); Mean Corpuscular HGB Conc 32.1 GM/DL (32-36); Mean Corpuscular Volume 95.4 FL (87-102); Mean Platelet Volume 10.2 FL (9.6-12.0); Monocytes % 5.5 % (1.7-12.7); Neutrophils % 87.4 % (38.7-73.9); Platelet Count 205 T/CUMM (130-400); Red Blood Count 3.92 MC/CUMM (3.8-5.5); Red Cell Distribution Width 12.5 % (9.3-17.3); White Blood Count 11.4 T/CUMM (4-12)
[2021-03-28 05:09] LABS: Calcium 9.1 MG/DL (8.5-10.1); Osmolality,Calculated 290.4 MOS/KG (273-304); Potassium 3.7 MMOL/L (3.5-5.1)
[2021-03-28] MEDS: LACTATED RINGERS 1,000 ML IV SCH (05:15)
[2021-03-28 05:59] LABS: Anisocytosis Slight; Band Neutrophils 33 % (0-10); Basophilic Stippling Slight; Lymphocytes 9 % (20-55); Macrocytosis Slight; Platelet Estimate Normal; Segmented Neutrophils 55 % (50-85); Total Cells Counted 100
[2021-03-28] MEDS: DEXT 5% NACL 0.45% KCL 40 MEQ 40 MEQ/1,000 ML BAG IV SCH ×2 (12:27→18:38)
[2021-03-28] MEDS: ENOXAPARIN 40 MG/0.4 ML SYRINGE SUBCUT SCH (15:14)
[2021-03-28 15:52] LABS: Bilirubin,Urine Negative (Negative); Blood, Urine Small mg/dL (Negative); Glucose,Urine (UA) Negative (Negative); Ketones,Urine Negative (Negative); Nitrite,Urine Negative (Negative); Protein,Urine 30 MG/DL; RBC,Urine 8 /HPF (0-4); Urine Appearance CLEAR (Clear); Urine Color Yellow (Yellow); Urine Specific Gravity 1.015 (1.001-1.035); Urine Urobilinogen < 2.0 EU/DL (0.2-1.0)
[2021-03-29] MEDS: HYDROmorphone 2 MG/1 ML VIAL IV PRN (02:00)
[2021-03-29] MEDS: KETOROLAC 15 MG/1 ML VIAL IV SCH ×4 (02:22→20:17)
[2021-03-29] MEDS: DEXT 5% NACL 0.45% KCL 40 MEQ 40 MEQ/1,000 ML BAG IV SCH ×2 (03:40→11:05)
[2021-03-29 04:42] LABS: Basophils % 0.3 % (0.0-0.8); Eosinophils # 0.1 10*3/uL (0.0-0.87); Eosinophils % 0.9 % (0.00-10.9); Hematocrit 28.6 VOL% (35.7-47.0); Hemoglobin 9.3 GM/DL (12.0-16.0); Immature Granulocytes % 0.4 %; Immature Granulocytes Absolute 0.04 #; Lymphocytes # 2.1 10*3/uL (1.4-4.0); Lymphocytes % 22.9 % (21.3-54.2); Mean Corpuscular HGB Conc 32.5 GM/DL (32-36); Mean Corpuscular Volume 96.6 FL (87-102); Monocytes % 8.2 % (1.7-12.7); Neutrophils % 67.3 % (38.7-73.9); Platelet Count 166 T/CUMM (130-400); Red Blood Count 2.96 MC/CUMM (3.8-5.5); Red Cell Distribution Width 12.8 % (9.3-17.3); White Blood Count 9.1 T/CUMM (4-12)
[2021-03-29 05:06] LABS: Calcium 8.7 MG/DL (8.5-10.1); Osmolality,Calculated 284.5 MOS/KG (273-304); Potassium 5.4 MMOL/L (3.5-5.1)
[2021-03-29] MEDS: ENOXAPARIN 40 MG/0.4 ML SYRINGE SUBCUT SCH (13:03)
[2021-03-30] MEDS: KETOROLAC 15 MG/1 ML VIAL IV SCH ×3 (02:30→14:49)
[2021-03-30] MEDS ORDERED: BISACODYL 10 MG SUPP RECTAL ONE (11:01)
[2021-03-30] MEDS: ENOXAPARIN 40 MG/0.4 ML SYRINGE SUBCUT SCH (14:49)
[2021-03-30] MEDS: hydroCHLOROthiazide 12.5 MG CAPSULE PO SCH (16:18)
[2021-03-30] MEDS: lisinopriL 20 MG TABLET PO SCH (16:18)
[2021-03-31] MEDS: lisinopriL 20 MG TABLET PO SCH (08:24)
[2021-03-31] MEDS: hydroCHLOROthiazide 12.5 MG CAPSULE PO SCH (08:25)
[2021-03-31] MEDS: ENOXAPARIN 40 MG/0.4 ML SYRINGE SUBCUT SCH (12:29)
[2021-03-31] MEDS: HYDROmorphone 2 MG/1 ML VIAL IV PRN (20:46)
[2021-04-01] MEDS: HYDROmorphone 2 MG/1 ML VIAL IV PRN (01:22)
[2021-04-01] MEDS: hydroCHLOROthiazide 12.5 MG CAPSULE PO SCH (12:09)
[2021-04-01] MEDS: lisinopriL 20 MG TABLET PO SCH (12:09)
[2021-04-01] MEDS: ENOXAPARIN 40 MG/0.4 ML SYRINGE SUBCUT SCH (12:12)
[2021-04-01] MEDS: LACTATED RINGERS 1,000 ML IV SCH ×2 (12:13→21:02)
[2021-04-01] MEDS: POLYETHYLENE GLYCOL POWDER 17 GM PACK PO SCH (14:30)
[2021-04-02] MEDS: LACTATED RINGERS 1,000 ML IV SCH (00:36)
[2021-04-02] MEDS: HYDROmorphone 2 MG/1 ML VIAL IV PRN (04:53)
[2021-04-02] MEDS: lisinopriL 20 MG TABLET PO SCH (09:04)
[2021-04-02] MEDS: ENOXAPARIN 40 MG/0.4 ML SYRINGE SUBCUT SCH ×2 (09:04→11:53)
[2021-04-02] MEDS: POLYETHYLENE GLYCOL POWDER 17 GM PACK PO SCH (09:04)
[2021-04-02] MEDS: hydroCHLOROthiazide 12.5 MG CAPSULE PO SCH (09:04)
[2021-04-02 11:48] VITALS: BP 133/74
== END 2021-04-02 12:42 | disposition home or self-care (01) | DRG 331 ==
LOC: N.ED 14:54 → N.EDINP 17:25 → N.3E 20:06
PROVIDERS: ADMIT Surgery; ATTEND Surgery